=== PATIENT | female | born 1995 | race Two or more races ===

== ENCOUNTER 2022-08-23 01:00 | Emergency (ER) | payer OTHER ==
[~2022-08-23] VITALS: Ht 167.6 cm; Wt 72.6 kg
[2022-08-23 01:20] VITALS: BP 132/82
[2022-08-23 01:25] VITALS: BP 132/82
[2022-08-23 03:25] LABS: BILIRUBIN,URINE NEGATIVE (NEGATIVE); BLOOD, URINE 3+ (NEGATIVE); LEUKOCYTE ESTERASE ,URINE 2+ (NEGATIVE); NITRITE, URINE NEGATIVE (NEGATIVE); UGLUCOSE NEGATIVE (NEGATIVE)
[2022-08-23 03:26] LABS: APPEARANCE,URINE BLOODY (CLEAR); COLOR,URINE BLOODY (YELLOW)
[2022-08-23 03:27] LABS: RBC,URINE TOO NUMEROUS TO COUN /HPF (0-5)
[2022-08-23] MEDS ORDERED: PHENAZOPYRIDINE 100 MG TAB PO ONE (05:00)
[2022-08-23] MEDS ORDERED: CEPH-588 PO (05:28)
[2022-08-23] MEDS ORDERED: PYR100 PO (05:28)
== END 2022-08-23 06:02 | disposition home or self-care (01) ==
LOC: MED 01:00
DX: N39.0 Urinary tract infection, site not specified (principal)
CPT/HCPCS: 81001; 81025; 87086; 99283